=== PATIENT | female | born 1995 | race Caucasian/White ===

== ENCOUNTER 2017-04-22 00:39 | Emergency (ER) | payer OTHER ==
[~2017-04-22] VITALS: Ht 152.4 cm; Wt 74.8 kg
[2017-04-22] MEDS ORDERED: NKM (00:46)
[2017-04-22 00:50] VITALS: BP 110/76
[2017-04-22] MEDS ORDERED: Bacitracin Oint UD TOPIC ONE ×2 (01:17→01:30)
[2017-04-22] MEDS ORDERED: DOXYCYCLINE MO100 MG ORAL (01:21)
--- NOTE | 2017-04-22 01:21 | Emergency Room Report ---
History of Present Illness General Chief Complaint: Laceration Source: Patient Present Illness HPI This is a 21-year-old female who is right-hand dominant. She presents with chief point of laceration to her left hand. She was reaching for a will admit fell on her hand. Sustained laceration over the third and fourth knuckle. This occurred just prior to arrival. Tetanus up-to-date. Throbbing pain now. Bleeding controlled. No other complaint. Allergies: Coded Allergies: PENICILLINS (Verified Allergy, Unknown, 04/22/17) Patient History Past Medical History: none, see triage record, old chart reviewed Past Surgical History: none Pertinent Family History: none Social History: Denies: smoking Last Menstrual Period: a month ago Now: No Immunizations: UTD Reviewed Nursing Documentation: PMH: Agreed, PSxH: Agreed Review of Systems Eye: Denies: eye pain, blurred vision ENT: Denies: ear pain, nose congestion, throat swelling Respiratory: Denies: cough, shortness of breath Cardiovascular: Denies: chest pain, palpitations Gastrointestinal: Denies: abdominal pain, diarrhea, nausea, vomiting Musculoskeletal: Denies: back pain, joint pain Skin: Denies: rash Neurological: Denies: headache, numbness Endocrine: Denies: increased thirst, increased urine Hematologic/Lymphatic: Denies: easy bruising All Other Systems: negative except mentioned in HPI Physical Exam Vital Signs Date Time Temp Pulse Resp B/P (MAP) Pulse Ox O2 Delivery O2 Flow Rate FiO2 04/22/17 00:41 98.2 85 16 110/76 100 04/22/17 00:50 Room Air vitals normal Sp02 EP Interpretation: reviewed, normal General Appearance: well appearing, no apparent distress, alert Head: normocephalic, atraumatic Eyes: bilateral eye PERRL, bilateral eye EOMI ENT: hearing grossly normal, normal pharynx Neck: full range of motion, supple, no meningismus Respiratory: chest non-tender, lungs clear, normal breath sounds Cardiovascular #1: regular rate, rhythm, no murmur Gastrointestinal: normal bowel sounds, non tender, no mass, no organomegaly, no bruit, non-distended Musculoskeletal: back normal, gait/station normal, normal range of motion, other - Left hand: There is a 2 cm laceration over the third MCP joint/area. No foreign body. Full range of motion. Neurologic: alert, oriented x3 Psychiatric: mood/affect normal Skin: warm/dry Procedures Laceration/Wound Repair Laceration/Wound Repair : Consent: Verbal Wound Location: upper extremity Wound's Depth, Shape: linear, contused tissue Wound Length (cm): 4 Wound Explored: clean Irrigated w/ Saline (ccs): 1000 Betadine Prep?: Yes Anesthesia: 1% Lidocaine Volume Anesthetic (ccs): 3 Wound Repaired With: sutures Suture Size/Type: 5:0, proline Number of Sutures: 5 Sterile Dressing Applied?: Yes Patient Tolerated: Well Complications: None Medical Decision Making Diagnostic Impression: Primary Impression: Laceration of hand Qualified Codes: S61.412A - Laceration without foreign body of left hand, initial encounter ER Course Patient with a laceration to her left hand. No foreign body. Concerning is that she has a small james in the So. Is not through and through. Is increased risk for infection. We'll put on antibiotics. Last Vital Signs Date Time Temp Pulse Resp B/P (MAP) Pulse Ox O2 Delivery O2 Flow Rate FiO2 04/22/17 00:50 98.2 85 16 110/76 100 Room Air Status: improved Disposition: HOME, SELF-CARE Condition: Stable Scripts Doxycycline Monohydrate* (DOXYCYCLINE MONOHYDRATE*) 100 Mg Capsule 100 MG ORAL Q12H, #14 CAP 0 Refills Prov: UMM CALIX M.D. 04/22/17 Referrals: NOT CHOSEN IPA/,REFERRING (PCP) Patient Instructions: Laceration Care, Adult Additional Instructions: Followup with your DrChris in 10 days for suture removal. Return for evidence of infection or any concern. UMM CALIX M.D. Apr 22, 2017 01:21
[2017-04-22 01:35] VITALS: BP 110/76
== END 2017-04-22 01:35 | disposition home or self-care (01) ==
LOC: EMR 01:04
DX: S61.213A Laceration without foreign body of left middle finger without damage to nail, initial encounter (principal); S61.215A Laceration without foreign body of left ring finger without damage to nail, initial encounter; W45.8XXA Other foreign body or object entering through skin, initial encounter; Y92.9 Unspecified place or not applicable; Z88.0 Allergy status to penicillin
CPT/HCPCS: 99283